=== PATIENT | female | born 1935 | race Caucasian/White ===

== ENCOUNTER 2017-01-21 08:58 | Outpatient (CLI) | payer MEDICARE ==
--- NOTE | 2017-01-21 10:49 | MMO ---
BILATERAL MAMMOGRAMS: DATE: 01/21/17 HISTORY: Screening mammography. COMPARISON: 11/16/12 and 12/09/15. FINDINGS: Scattered fibroglandular densities and benign-appearing calcifications are again demonstrated. Focal asymmetry deep within the inferior medial aspect of the right breast is stable. There is no new dom inant mass or suspicious calcifications. The study was evaluated with the assistance of computer-aided detection. IMPRESSION: BIRADS 2: Benign Finding(s) Suggest routine follow-up. POS: [facility]
== END 2017-01-21 08:59 | disposition home or self-care (01) ==
LOC: MAMMO 08:58
PROVIDERS: ATTEND Family Medicine
DX: Z12.31 Encounter for screening mammogram for malignant neoplasm of breast (principal)
CPT/HCPCS: 77067; G0202

== ENCOUNTER 2017-06-24 10:56 | Emergency (ER) | payer MEDICARE ==
[2017-06-24 11:43] LABS: #Basophils 0.1 thou/uL (0.0-0.2); #Monocytes 0.5 thou/uL (0.11-0.59); #Neutrophils 7.5 thou/uL (1.40-6.50); %Basophils 0.8 % (0.0-1.0); %Eosinophils 0.1 % (0.0-10.0); %Lymphocytes 27.1 % (21.0-51.0); %Monocytes 4.3 % (0.0-10.0); %Neutrophils 67.7 % (42.0-75.0); Hemoglobin 13.1 g/dL (12.0-16.0); Mean Corpuscular HGB CONC 32.5 g/dL (32.0-36.0); Mean Corpuscular Hemoglobin 28.6 pg (27.0-31.0); Mean Corpuscular Volume 88.2 fl (81.0-99.0); Mean Platelet Volume 8.2 fL (7.4-10.4); Platelet Count 375 thou/uL (130-400); RBC Distribution Width 13.3 % (11.5-14.5); Red Blood Cell (RBC) Count 4.59 mill/uL (4.20-5.40); White Blood Cell (WBC) Count 11.1 thou/uL (4.8-10.8)
[2017-06-24] MEDS ORDERED: hydrALAZINE 20 MG/ML VIAL ONE (11:43)
[2017-06-24 12:01] LABS: ALT (SGPT) 12 U/L (8-55); AST (SGOT) 20 U/L (5-34); Albumin 4.6 g/dL (3.4-4.8); Alkaline Phosphatase 85 U/L (40-150); Anion Gap 15 mmol/L (10-20); BUN (Urea Nitrogen) 23 mg/dL (9.8-20.1); Bilirubin, Total 0.5 mg/dL (0.2-1.2); CK (CPK) 98 U/L (29-168); Calc. Creatinine Clearance 0 mL/min (70-130); Calcium 10.2 mg/dL (7.8-10.44); Carbon Dioxide 23 mmol/L (23-31); Chloride 100 mmol/L (98-107); Estimated GFR-MDRD 66; Glucose 100 mg/dL (83-110); Protein, Total 7.6 g/dL (6.0-8.3); Sodium 134 mmol/L (136-145)
[2017-06-24 12:05] LABS: CKMB 2.9 ng/mL (0-6.6); Troponin I Less than 0.010 ng/mL (< 0.028)
--- NOTE | 2017-06-24 13:29 | RAD ---
CHEST 2 VIEWS: HISTORY: Cough. COMPARISON: 06/21/17 study. FINDINGS: Heart size is within normal limits. There are atherosclerotic changes of the aorta. The lungs are c lear of any infiltrative process. Bones appear demineralized. IMPRESSION: No active intrathoracic disease. Stable chest. POS: [facility]
== END 2017-06-24 13:20 | disposition home or self-care (01) ==
LOC: ERS 10:56
DX: J40 Bronchitis, not specified as acute or chronic (principal); Z79.899 Other long term (current) drug therapy
CPT/HCPCS: 36415; 71046; 80053; 82550; 82553; 83605; 84484; 85025; 87040; 93005; 96374; J0360

== ENCOUNTER 2018-05-03 09:30 | Emergency (ER) | payer MEDICARE ==
[2018-05-03 09:59] LABS: #Basophils 0.1 thou/uL (0.0-0.2); #Lymphocytes 1.9 thou/uL (1.20-3.40); #Monocytes 0.4 thou/uL (0.11-0.59); #Neutrophils 6.8 thou/uL (1.40-6.50); %Basophils 0.9 % (0.0-1.0); %Eosinophils 0.3 % (0.0-10.0); %Lymphocytes 20.5 % (21.0-51.0); %Monocytes 4.8 % (0.0-10.0); %Neutrophils 73.5 % (42.0-75.0); Hemoglobin 13.7 g/dL (12.0-16.0); Mean Corpuscular HGB CONC 33.7 g/dL (32.0-36.0); Mean Corpuscular Hemoglobin 29.2 pg (27.0-31.0); Mean Corpuscular Volume 86.6 fL (78.0-98.0); Platelet Count 401 thou/uL (130-400); RBC Distribution Width 13.2 % (11.5-14.5); White Blood Cell (WBC) Count 9.2 thou/uL (4.8-10.8)
[2018-05-03 10:25] LABS: ALT (SGPT) 16 U/L (8-55); AST (SGOT) 22 U/L (5-34); Albumin 4.8 g/dL (3.4-4.8); Alkaline Phosphatase 98 U/L (40-150); Anion Gap 17 mmol/L (10-20); BUN (Urea Nitrogen) 17 mg/dL (9.8-20.1); Bilirubin, Total 0.7 mg/dL (0.2-1.2); CK (CPK) 92 U/L (29-168); Calc. Creatinine Clearance 0 mL/min (70-130); Calcium 10.1 mg/dL (7.8-10.44); Carbon Dioxide 21 mmol/L (23-31); Chloride 104 mmol/L (98-107); Estimated GFR-MDRD 65; Globulin 3.4 g/dL (2.4-3.5); Glucose 101 mg/dL (83-110); Lipase 24 U/L (8-78); Potassium 4.3 mmol/L (3.5-5.1); Protein, Total 8.2 g/dL (6.0-8.3); Sodium 138 mmol/L (136-145)
--- NOTE | 2018-05-03 11:04 | RAD ---
SINGLE VIEW CHEST: HISTORY: Elevated blood pressure and mid sternal chest pain. COMPARISON: 06/24/2017 FINDINGS: Single view of the chest show normal sized cardiomediastinal silhouette. There is no evidence of cons olidation, mass, or pleural effusion. The bones are unremarkable. IMPRESSION: No evidence of acute cardiopulmonary disease. POS: [facility]
--- NOTE | 2018-05-06 10:59 | EKG ---
Test Reason : Blood Pressure : / mmHG Vent. Rate : 081 BPM Atrial Rate : 081 BPM P-R Int : 134 ms QRS Dur : 078 ms QT Int : 364 ms P-R-T Axes : 084 000 020 degrees QTc Int : 422 ms Sinus rhythm with Premature atrial complexes Otherwise normal ECG Confirmed by RYAN DOMINGO DO ([id number]), senior editor ANGIE THAPA ([id number]) on 05/06/2018 10:59:15 AM Referred By: Confirmed By:RYAN DOMINGO DO
== END 2018-05-03 11:12 | disposition home or self-care (01) ==
LOC: ERS 09:30
DX: I10 Essential (primary) hypertension (principal); R10.13 Epigastric pain; E78.5 Hyperlipidemia, unspecified; Z79.899 Other long term (current) drug therapy
CPT/HCPCS: 71045; 80053; 82550; 83690; 84484; 85025; 93005

== ENCOUNTER 2019-05-07 16:36 | Inpatient (IN) | payer MEDICARE ==
[~2019-05-07 16:36] MED LIST: ISOVUE-370 76%-LOCM 1 ML ONE
[2019-05-07 17:37] LABS: #Basophils 0.1 thou/uL (0.0-0.2); #Eosinphils 0.1 thou/uL (0.0-0.7); #Lymphocytes 2.3 thou/uL (1.20-3.40); #Monocytes 1.2 thou/uL (0.11-0.59); #Neutrophils 8.9 thou/uL (1.40-6.50); %Basophils 0.5 % (0.0-1.0); %Eosinophils 0.7 % (0.0-10.0); %Lymphocytes 18.5 % (21.0-51.0); %Monocytes 9.8 % (0.0-10.0); %Neutrophils 70.5 % (42.0-75.0); Hemoglobin 12.3 g/dL (12.0-16.0); Mean Corpuscular HGB CONC 33.2 g/dL (32.0-36.0); Mean Corpuscular Hemoglobin 28.8 pg (27.0-31.0); Mean Corpuscular Volume 86.6 fL (78.0-98.0); Mean Platelet Volume 8.9 fL (7.4-10.4); Platelet Count 356 thou/uL (130-400); RBC Distribution Width 12.5 % (11.5-14.5); Red Blood Cell (RBC) Count 4.27 mill/uL (4.20-5.40); White Blood Cell (WBC) Count 12.6 thou/uL (4.8-10.8)
[2019-05-07 17:56] LABS: ALT (SGPT) 26 U/L (8-55); AST (SGOT) 32 U/L (5-34); Albumin 4.1 g/dL (3.4-4.8); Alkaline Phosphatase 96 U/L (40-110); Anion Gap 12 mmol/L (10-20); BUN (Urea Nitrogen) 16 mg/dL (9.8-20.1); Bilirubin, Total 0.7 mg/dL (0.2-1.2); Calc. Creatinine Clearance 0 mL/min (70-130); Calcium 9.2 mg/dL (7.8-10.44); Carbon Dioxide 26 mmol/L (23-31); Chloride 102 mmol/L (98-107); Estimated GFR-MDRD 59; Globulin 3.3 g/dL (2.4-3.5); Glucose 114 mg/dL (83-110); Potassium 3.8 mmol/L (3.5-5.1); Protein, Total 7.4 g/dL (6.0-8.3); Sodium 136 mmol/L (136-145)
--- NOTE | 2019-05-07 19:40 | CT ---
CT OF THE SOFT TISSUES OF THE NECK: Indication: History of right sided abscess. Comparison: None. FINDINGS: The nome lenses have been replaced. The visualized intracranial contents are unremarkable appearing . There is a peripherally enhancing loculated fluid collection seen involving the inferior aspect of th e right engineer muscle measuring 2.6 x 1.9 x 1.8 cm, consistent with an abscess. This is causing m ass effect on the underlying right submandibular gland with thickening of the overlying right platysm a. There is some mild edema seen within the right engineer space. There is shotty appearing mildly prominent lymph nodes within the right engineer space. There is dental amalgam that limits visualization of the oral cavity. There is a posterior right rom ibular metallic post without significant surrounding periprosthetic lucency to suggest presence of in fection. No significant periodontal disease is evident. Visualized aortodigestric tract appears within normal limits. Small hypodensities involving the left thyroid gland. Left submandibular and both parotid glands are normal appearing. Lung apices are clear. No pathologically enlarged lymph nodes are evident within the upper mediastinu m. Scattered degenerative and osteoarthritic change. IMPRESSION: 1. Right engineer space abscess with surrounding inflammatory phlegmon and inflammation. The source of the infection is difficult to determine on the current exam. 2. Right facial and right neck cellulitis. 3. ENT consultation is recommended. POS: [facility]
[2019-05-07] MEDS ORDERED: Clindamycin/D5W 900 mg/50 ml Premix Bag ONE (20:31)
[2019-05-07] MEDS ORDERED: Acetaminophen 325 MG TAB PO PRN (21:21)
[2019-05-07] MEDS ORDERED: Ondansetron PF 4 MG/2 ML Vial IVP PRN (21:21)
[2019-05-07] MEDS ORDERED: Bisacodyl 5 MG TAB PO PRN (21:21)
[2019-05-07] MEDS ORDERED: Acetaminophen 650 MG Suppository PR PRN (21:21)
[2019-05-07] MEDS ORDERED: hydrALAZINE 20 MG/ML VIAL SLOW IVP PRN (21:24)
--- NOTE | 2019-05-07 21:54 | HP ---
PRIMARY CARE PROVIDER: Regis Valencia DO CHIEF COMPLAINT: Neck pain. HISTORY OF PRESENT ILLNESS: Ms. Montgomery is a pleasant 83-year-old lady, who was seen at [facility] on May 07, 2019. She reports that 5 days ago, the right side of her neck became swollen. It was also painful, sharp, on and off, lasting 2 or 3 hours at a time, worse with chewing food, improved with warm compresses, nonradiating. It was also accompanied by a temperature of 102 degrees Fahrenheit today. She also reports difficulty swallowing and sore throat. REVIEW OF SYSTEMS: All systems were reviewed and found to be negative except for the pertinent positives mentioned above. PAST MEDICAL HISTORY: Bartholin cyst I and D, plantar fasciitis, dyslipidemia, hypertension, osteopenia, and Meniere disease. PAST SURGICAL HISTORY: Bartholin cyst drainage and hysterectomy. SOCIAL HISTORY: The patient denies tobacco use, alcohol use, or recreational drug use. She ambulates independently, but uses her cane or walker if she has episodes of Meniere disease. FAMILY HISTORY: No family history of premature coronary artery disease. CODE STATUS: I discussed her code status. She is full code. ALLERGIES: CEPHALEXIN AND PENICILLIN. CURRENT MEDICATIONS: 1. Bystolic 2.5 mg daily. 2. Simethicone as needed. PHYSICAL EXAMINATION: GENERAL: On examination, Ms. Montgomery is awake and alert, not in acute distress. VITAL SIGNS: Blood pressure is 187/81, pulse 89, respiratory rate 18, and oxygen saturation 98% on room air. Earlier, she had blood pressure of 216/103. T-max in the emergency room is 100.3 degrees Fahrenheit. EYES: No scleral icterus, no conjunctival pallor. ENT: Moist mucosal membranes. NECK: She has a swelling over the right side of her neck, firm, erythematous and warm to touch and tender. RESPIRATORY: Accessory muscles of breathing are not active. Chest wall movements are symmetric bilaterally. LUNGS: Clear to auscultation without wheeze, rhonchi, or crepitations. CARDIOVASCULAR: S1 and S2 are heard, regular. Peripheral pulses palpable. ABDOMEN: Soft, nontender. Bowel sounds are heard. NEUROLOGIC: No facial droop. Deep tendon reflexes 2+. MUSCULOSKELETAL: Power is 5/5 in all 4 extremities. SKIN: Erythema over the right side of the neck, no other rashes. PSYCHIATRIC: Normal mood, normal affect. The patient is oriented to person, place, and time. LABORATORY DATA: Ms. Montgomery's labs and investigations were reviewed. She has leukocytosis with 12,600 white cells, of which 70.5% are neutrophils. Hemoglobin and platelet count are normal. Comprehensive metabolic profile is unremarkable. Lactic acid is normal. She also had soft tissue CT scan of the neck, which showed right acid treater space abscess with surrounding inflammatory phlegmon and inflammation, and right facial and right neck cellulitis. ASSESSMENT AND PLAN: Ms. Montgomery is a pleasant 83-year-old lady, who was seen at [facility] on May 07, 2019. Her problem list includes: 1. Sepsis: She had a temperature of 103 degrees Fahrenheit at home. She has leukocytosis and source of infection in the neck. She will be admitted to the hospital for further management. 2. Neck abscess: She has received intravenous clindamycin, which I will continue. ENT Service was contacted by emergency room physician and deferred to OMFS Service. The patient will be admitted under hospitalist service and [facility] Service will be consulted. 3. Hypertension: I will continue Bystolic. 4. Hypertensive urgency: The patient had markedly elevated blood pressures at the time of presentation. I will add p.r.n. hydralazine intravenously since she will be n.p.o. after midnight for a potential surgery. 5. The patient to be started on full liquid diet till midnight and then n.p.o. Many thanks for allowing me to participate in your patient's care. Please feel free to contact me with any questions or concerns. LEVEL OF RISK: Moderate. LEVEL OF COMPLEXITY: Moderate. Job ID: [id number]
[2019-05-07 23:26] VITALS: BMI 23.7
[2019-05-07] MEDS: Sodium Chloride 0.9% 1,000 ML IV SCH (23:45)
[2019-05-08 05:08] LABS: #Basophils 0.1 thou/uL (0.0-0.2); #Eosinphils 0.1 thou/uL (0.0-0.7); #Lymphocytes 2.2 thou/uL (1.20-3.40); #Monocytes 1.4 thou/uL (0.11-0.59); #Neutrophils 8.2 thou/uL (1.40-6.50); %Basophils 0.6 % (0.0-1.0); %Eosinophils 1.1 % (0.0-10.0); %Lymphocytes 18.3 % (21.0-51.0); %Monocytes 11.3 % (0.0-10.0); %Neutrophils 68.6 % (42.0-75.0); Hemoglobin 11.9 g/dL (12.0-16.0); Mean Corpuscular HGB CONC 32.5 g/dL (32.0-36.0); Mean Corpuscular Hemoglobin 28.1 pg (27.0-31.0); Mean Corpuscular Volume 86.2 fL (78.0-98.0); Mean Platelet Volume 8.9 fL (7.4-10.4); Platelet Count 329 thou/uL (130-400); RBC Distribution Width 12.4 % (11.5-14.5); Red Blood Cell (RBC) Count 4.24 mill/uL (4.20-5.40)
[2019-05-08] MEDS: Clindamycin/D5W 900 MG in Premix Bag 1 BAG IVPB SCH ×3 (05:16→22:20)
[2019-05-08 05:30] LABS: Anion Gap 12 mmol/L (10-20); BUN (Urea Nitrogen) 16 mg/dL (9.8-20.1); Calc. Creatinine Clearance 55 mL/min (70-130); Calcium 8.6 mg/dL (7.8-10.44); Carbon Dioxide 23 mmol/L (23-31); Chloride 106 mmol/L (98-107); Estimated GFR-MDRD 71; Glucose 115 mg/dL (83-110); Potassium 3.6 mmol/L (3.5-5.1); Sodium 137 mmol/L (136-145)
[2019-05-08] MEDS ORDERED: Artificial Tears 18 DROP/0.9 ML EA EYE PRN (07:13)
[2019-05-08] MEDS ORDERED: Loperamide HCl 2 MG CAP PO PRN (07:13)
[2019-05-08] MEDS ORDERED: Cepastat Lozenges 1 LOZ PO PRN (07:13)
[2019-05-08] MEDS ORDERED: Diabetic Tussin 200 MG/10 ML UDCUP PO PRN (07:13)
[2019-05-08] MEDS ORDERED: HYDROcodone/Acetaminophen 5/325 mg Tablet PO PRN (07:13)
[2019-05-08] MEDS ORDERED: Calcium Carbonate 500 MG ChewTAB PO PRN (07:13)
[2019-05-08] MEDS ORDERED: Ondansetron ODT 4 MG TAB PO PRN (07:13)
[2019-05-08] MEDS ORDERED: Senokot S 8.6-50 MG TAB PO PRN (07:13)
[2019-05-08] MEDS ORDERED: Sodium Chloride 0.65% Nasal 44 ML BOT EA NARE PRN (07:13)
[2019-05-08] MEDS ORDERED: Zolpidem Tartrate 5 MG TAB PO PRN (07:13)
[2019-05-08] MEDS ORDERED: Loratadine 10 MG TAB PO PRN (07:13)
[2019-05-08] MEDS ORDERED: Morphine 2 MG/ML SYRINGE SLOW IVP PRN (07:36)
[2019-05-08] MEDS: Nebivolol HCl 2.5 MG TAB PO SCH (08:20)
[2019-05-08] MEDS: Famotidine 20 MG TAB PO SCH ×2 (08:20→21:47)
--- NOTE | 2019-05-08 09:28 | PDOC.HOSPP ---
- Subjective Encounter Date: 05/08/19 Encounter Time: 08:45 Subjective: Patient seen and examined. No new complaints. No overnight events - Objective Vital Signs & Weight: Vital Signs (12 hours) Temp Pulse Resp BP Pulse Ox 05/08/19 08:11 98.9 F 73 18 119/67 96 05/08/19 08:00 96 05/08/19 04:51 99.6 F 84 18 147/74 H 92 L 05/07/19 22:40 97.8 F 84 18 177/99 H 96 Weight Weight 138 lb 4.8 oz I&O: 05/07/19 05/08/19 05/09/19 06:59 06:59 06:59 Intake Total 1040 Balance 1040 Result Diagrams: 05/08/19 04:48 05/08/19 04:48 Radiology Reviewed by me: Yes Hospitalist ROS - Review of Systems Constitutional: denies: fever, chills, sweats, weakness, malaise, other Eyes: denies: pain, vision change, conjunctivae inflammation, eyelid inflammation, redness, other ENT: reports: throat pain, throat swelling. denies: ear pain, ear discharge, nose pain, nose discharge, nose congestion, mouth pain, mouth swelling, other Respiratory: denies: cough, dry, shortness of breath, hemoptysis, SOB with excertion, pleuritic pain, sputum, wheezing, other Cardiovascular: denies: chest pain, palpitations, orthopnea, paroxysmal noc. dyspnea, edema, light headedness, other Gastrointestinal: denies: nausea, vomiting, abdominal pain, diarrhea, constipation, melena, hematochezia, other Genitourinary: denies: dysuria, frequency, incontinence, hematuria, retention, other Musculoskeletal: reports: neck pain Skin: denies: rash, lesions, lexi, bruising, other - Medication Medications: Active Medications Generic Name Dose Route Start Last Admin Trade Name Freq PRN Reason Stop Dose Admin Acetaminophen 650 mg 05/07/19 21:21 05/08/19 05:20 Tylenol FL 650 mg Q4H PRN Administration Headache/Fever/Mild Pain (1-3) Famotidine 20 mg 05/08/19 09:00 05/08/19 08:20 Pepcid PO Not Given BID EUGENIE Clindamycin Phosphate/Dextrose 50 mls @ 100 mls/hr 05/08/19 06:00 05/08/19 05 :16 900 mg/ Device IVPB 50 mls Q8HR EUGENIE Administration Sodium Chloride 1,000 mls @ 70 mls/hr 05/07/19 21:30 05/07/19 23:45 Normal Saline 0.9% IV 1,000 mls .[id number] EUGENIE Administration Nebivolol 2.5 mg 05/08/19 09:00 05/08/19 08:20 Bystolic PO Not Given DAILY EUGENIE Sodium Chloride 10 ml 05/08/19 09:00 05/08/19 08:22 Flush - Normal Saline IVF Not Given Q12HR EUGENIE - Exam General Appearance: NAD, awake alert Eye: PERRL, anicteric sclera ENT: normocephalic atraumatic, no oropharyngeal lesions Neck: supple, symmetric, no JVD, no thyromegaly Neck - other findings: right side of neck swelling, tender, warmth Heart: RRR, no murmur, no gallops, no rubs Respiratory: CTAB, no wheezes, no rales, no ronchi Gastrointestinal: soft, non-tender, non-distended, normal bowel sounds Extremities: no cyanosis, no clubbing, no edema Skin: normal turgor, no lesions Neurological: no focal deficits Musculoskeletal: normal tone, normal strength Psychiatric: normal affect, normal behavior Hosp A/P (1) Sepsis Code(s): A41.9 - SEPSIS, UNSPECIFIED ORGANISM Status: Acute Qualifiers: Sepsis type: sepsis due to unspecified organism Sepsis acute organ dysfunction status: without acute organ dysfunction Qualified Code(s): A41.9 - Sepsis, unspecified organism (2) Neck abscess Code(s): L02.11 - CUTANEOUS ABSCESS OF NECK Status: Acute (3) Hypertension Code(s): I10 - ESSENTIAL (PRIMARY) HYPERTENSION Status: Chronic - Plan old records reviewed/req, continue antibiotics 05/08/19 suspecting origin of abscess from tooth problem, oral surgery consulted for their opinion warm compress application over affected area continue IV antibiotics Medication reviewed and continue to provide symptomatic care and supportive care follow culture pain control with pain medication
[2019-05-08] MEDS ORDERED: Dexamethasone 20 MG/5 ML VIAL ONE (11:12)
[2019-05-08] MEDS ORDERED: Lidocaine 1% PF 5 ML VIAL ONE (11:12)
[2019-05-08] MEDS ORDERED: PROPOFOL 200 MG/20 ML VIAL ONE (11:12)
[2019-05-08] MEDS ORDERED: Rocuronium Bromide 10 MG/ML (10ML VIAL) ONE (11:12)
[2019-05-08] MEDS ORDERED: Ondansetron PF 4 MG/2 ML Vial ONE (11:12)
[2019-05-08] MEDS ORDERED: Esmolol 100 MG/10 ML VIAL ONE (11:12)
[2019-05-08] MEDS ORDERED: Ketorolac Tromethamine 30 MG/ML VIAL ONE (11:12)
[2019-05-08] MEDS: Sodium Chloride 0.9% 1,000 ML IV SCH ×2 (14:20→21:48)
[2019-05-08] MEDS ORDERED: Chlorhexidine Gluconate 15 ML UDCUP SSP ONE (18:06)
[2019-05-08] MEDS ORDERED: Bacitracin Zinc Ointment 30 gm TUBE ONE (18:06)
[2019-05-08] MEDS ORDERED: Lidocaine 1% w/Epinephrine 1:100K 20 ML VIAL ONE (18:06)
[2019-05-08] MEDS ORDERED: Fentanyl 100 MCG/2 ML VIAL ONE (18:07)
[2019-05-08] MEDS ORDERED: SUGAMMADEX SODIUM 200 MG/2 ML VIAL ONE (20:20)
[2019-05-08] MEDS ORDERED: SUGAMMADEX SODIUM 500 MG/5 ML VIAL ONE (20:20)
[2019-05-08] MEDS ORDERED: HYDROmorphone 2 MG/ML VIAL SLOW IVP PRN (20:34)
[2019-05-08] MEDS ORDERED: Ondansetron HCl/PF 4 MG/2 ML Vial IVP PRN (20:34)
[2019-05-08] MEDS ORDERED: Promethazine HCl 25 MG/ML VIAL IM PRN (20:34)
[2019-05-08] MEDS ORDERED: Morphine Sulfate 2 MG/ML SYRINGE SLOW IVP PRN (20:34)
[2019-05-08] MEDS ORDERED: Promethazine HCl 25 MG/ML VIAL SLOW IVP PRN (20:34)
[2019-05-08] MEDS ORDERED: PACU-Morphine 4MG/ML VIAL SLOW IVP PRN (20:34)
--- NOTE | 2019-05-09 01:27 | CON ---
DATE OF CONSULTATION: 05/08/2019 CONSULTING PHYSICIAN: Dr. Corona with the hospitalist. CHIEF COMPLAINT: Right-sided neck pain. HISTORY OF PRESENT ILLNESS: An 83-year-old female, who states that a couple of days prior, she noticed a lump on the right side of her neck positioned along the area of one of her superficial neck veins. She reports that also small localized lump then turned into a larger swelling and progressed to its current state. As the swelling got worse, the patient started experiencing difficulty and discomfort with opening her mouth chewing food, and she states that she noted a fever of approximately 102 degrees. She subsequently presented to the emergency room and on evaluation was found to have a right-sided deep neck space abscess. I was consulted for evaluation and management. REVIEW OF SYSTEMS: Pain and swelling of the right neck, difficulty opening her mouth, discomfort on swallowing. Otherwise, review of systems is negative. PAST MEDICAL HISTORY: Dyslipidemia, hypertension, osteopenia, Meniere disease. PAST SURGICAL HISTORY: Incision and drainage of Bartholin cyst, hysterectomy. HOME MEDICATIONS: 1. Bystolic. 2. Simethicone. ALLERGIES: PENICILLIN AND CEPHALEXIN. SOCIAL HISTORY: Denies tobacco, alcohol, or recreational drugs. PHYSICAL EXAMINATION: VITAL SIGNS: Blood pressure 137/82, pulse 72, respiratory rate is 18, 95% oxygen on room air, temperature 98.2. GENERAL: Alert and oriented x3. No apparent distress. HEAD AND NECK: The patient has significant right-sided neck swelling, which is indurated and erythematous. She is uncomfortable to palpation, but not significantly so. Due to the degree of the induration, I am unable to palpate any fluctuance. This swelling extends from the right submandibular down along the anterior lateral neck approaching the clavicular region. Maximum incisal opening is approximately 20 mm. There is no noted swelling or erythema intraorally with the buccal vestibule and the lingual vestibule appearing relatively within normal limits. The patient has an implant in the tooth #30 site, which has some exposed aspects facially; however, no signs of active acute infection in the area. None of the teeth on the right mandibular area are mobile and there are no signs of gross caries. LABORATORY STUDIES: Hematology shows a white blood cell count of 12, down from 12.6 yesterday. Platelet count 329, hemoglobin 11.9 with normal neutrophils, low lymphocytes. Chemistry studies show a glucose of 115, otherwise within normal limits. CT scan of the neck shows a large multiloculated fluid collection in the fairly inferior aspect of the right submandibular space region. There is no clear tracking or continuation of this abscess up into the area of the right mandible and dentition. The patient does have some surrounding cellulitis and potentially some phlegmon. ASSESSMENT: Right deep neck space abscess without a clear identification of source. This abscess may represent a dentoalveolar infection. However, based on the clinical and radiographic exam, it seems questionable. Additionally, based on the patient's report of development and progression of this abscess, also calls into question whether or not there is a dentoalveolar source. PLAN: 1. The patient will be kept n.p.o. and will be taken to the operating room later today for incision and drainage of the right submandibular abscess. While the patient is under general anesthetic, further exploration of the dentition of the right mandible will be entertained in any teeth or implants that show any signs of concern for potential cause of the deep neck abscess. Those potential etiologies will be removed. 2. Continue IV antibiotics and add Peridex oral rinses. The patient was consented for the above-mentioned procedure. Job ID: [id number]
--- NOTE | 2019-05-09 01:45 | OP ---
DATE OF PROCEDURE: 05/08/2019 PREOPERATIVE DIAGNOSIS: Right submandibular space abscess. POSTOPERATIVE DIAGNOSIS: Right submandibular space abscess. PROCEDURE PERFORMED: Transcervical incision and drainage of right submandibular abscess. INDICATIONS FOR PROCEDURE: This 83-year-old female with recent acute onset of right neck swelling, induration and pain. On presentation to the emergency room, the patient was found to have a large multiloculated abscess of the right neck and was admitted for initiation of IV antibiotics. I was consulted for surgical management of the abscess and the patient was brought to the operating room at this time for incision and drainage of the neck abscess. DESCRIPTION OF PROCEDURE: The patient was identified in the preoperative holding and all questions were answered. She was subsequently transferred to the operating room and transferred to the operating room table in a supine position. She was subsequently intubated via the oral route by the anesthesia service without complication. A surgical time-out was performed. The face and neck were prepped and draped in a sterile manner and a skin marker was used to nevaeh the level of the planned incision in the right neck. This incision was approximately 3-4 cm inferior to the inferior border of the mandible. After marking the incision, lidocaine with epinephrine was infiltrated throughout the area of the planned approach. Subsequently, a 15 blade was used to make a skin incision. Hemostats were then used to bluntly dissect through the subcutaneous tissue through the platysma and up toward the area of the abscess. Very soon after a blunt dissection began, the abscess was entered bluntly using the hemostats and the hemostats were spread to decompress the abscess. Significant amounts of ruben purulence were obtained and a culture swab was taken and sent for cultures. After this, finger dissection then ensued to break up all loculations and further completely decompressed the abscess. This was done without problem and it was noted on finger dissection that the abscess did not proceed fully up into the area of the perimandibular region, although it did continue just to the inferior border region. After complete decompression of the abscess, the wound was copiously irrigated with bacitracin infused normal saline. During the finger dissection and irrigation, multiple pieces of possibly necrotic tissue were retrieved from the cavity, and 2 of these pieces were sent for pathology. After decompression and irrigation, attention was turned intraorally and the dentition of the right mandible was evaluated. As was felt on the preoperative exam, there was no signs of inflammation, swelling, or infection intraorally with the tissues of the buccal vestibule and lingual vestibule completely normal and unaffected relative to the tissues of the right neck. Additionally, the implant in the tooth #30 site was noted to have some exposed aspects facially, but there are no signs of acute infection in the area. All teeth in the right mandible were nonmobile and without significant probing depths or obvious signs of pathology. It was decided at this time that no teeth or implants will be removed at this point. The oral cavity was suctioned free of secretions. Attention was turned back to the neck. The neck wound was irrigated once more with a bacitracin infused saline and then a quarter-inch Jose De Jesus drain was doubled over on itself and introduced into the abscess cavity. This drain was tacked to the skin using a 2-0 nylon drain stitch and it was cut to length. The face and neck were cleaned of the prep solution and ABD pad as well as a Kerlix fluffs were placed over the neck wound and taped securely. The patient was turned over to Anesthesia for emergence and extubation, which ensued without complication. INTRAVENOUS FLUIDS: Please see anesthetic record. ESTIMATED BLOOD LOSS: 15 mL. SPECIMENS: Purulence and tissue from the right neck abscess region. DRAINS: Quarter-inch [place] to the right submandibular space. IMPLANTS: None. COMPLICATIONS: None. FINDINGS: Significant thick purulence from the right deep neck and submandibular regions. Multiple pieces of what appeared to be possible necrotic soft tissue retrieved from the area of the right neck abscess. No obvious signs of dental pathology or infection. DISPOSITION: The patient tolerated the procedure well and she was transferred to the recovery room in good condition. Job ID: [id number]
[2019-05-09] MEDS: Sodium Chloride 0.9% 1,000 ML IV SCH (02:30)
[2019-05-09] MEDS: Clindamycin/D5W 900 MG in Premix Bag 1 BAG IVPB SCH ×3 (05:42→21:26)
[2019-05-09 06:12] LABS: #Monocytes 0.2 thou/uL (0.11-0.59); #Neutrophils 7.3 thou/uL (1.40-6.50); %Basophils 0.4 % (0.0-1.0); %Lymphocytes 12.2 % (21.0-51.0); %Monocytes 1.9 % (0.0-10.0); %Neutrophils 85.5 % (42.0-75.0); Hemoglobin 12.8 g/dL (12.0-16.0); Mean Corpuscular HGB CONC 32.9 g/dL (32.0-36.0); Mean Corpuscular Hemoglobin 28.8 pg (27.0-31.0); Mean Corpuscular Volume 87.4 fL (78.0-98.0); Mean Platelet Volume 9.3 fL (7.4-10.4); Platelet Count 373 thou/uL (130-400); RBC Distribution Width 12.3 % (11.5-14.5); Red Blood Cell (RBC) Count 4.44 mill/uL (4.20-5.40); White Blood Cell (WBC) Count 8.5 thou/uL (4.8-10.8)
[2019-05-09] MEDS: Nebivolol HCl 2.5 MG TAB PO SCH (08:05)
[2019-05-09] MEDS: Famotidine 20 MG TAB PO SCH ×2 (08:06→21:25)
--- NOTE | 2019-05-09 17:50 | PDOC.HOSPP ---
- Subjective Subjective: Seen and examined. Dressing of the neck is clean, dry, and intact. Preliminary cultures was Staphylococcus, sensitivity pending. Patient states that pain and swelling has significantly improved and she is able the chew and swallow now without pain. Time was given for questions, all answered in detail. - Objective Vital Signs & Weight: Vital Signs (12 hours) Temp Pulse Resp BP Pulse Ox 05/09/19 15:22 97.6 F 64 16 133/70 96 05/09/19 11:17 97.6 F 64 16 128/67 94 L 05/09/19 07:23 97.8 F 74 17 137/80 98 Weight Weight 138 lb 4.8 oz I&O: 05/08/19 05/09/19 05/10/19 06:59 06:59 06:59 Intake Total 1040 900 880 Balance 1040 900 880 Result Diagrams: 05/09/19 05:47 05/08/19 04:48 Radiology Reviewed by me: Yes Hospitalist ROS - Review of Systems All other systems reviewed; all pertinent +/- noted in HPI/Subj - Medication Medications: Active Medications Generic Name Dose Route Start Last Admin Trade Name Freq PRN Reason Stop Dose Admin Acetaminophen 650 mg 05/07/19 21:21 05/08/19 05:20 Tylenol [place] 650 mg Q4H PRN Administration Headache/Fever/Mild Pain (1-3) Famotidine 20 mg 05/08/19 09:00 05/09/19 08:06 Pepcid PO 20 mg BID EUGENIE Administration Clindamycin Phosphate/Dextrose 50 mls @ 100 mls/hr 05/08/19 06:00 05/09/19 13 :23 900 mg/ Device IVPB 50 mls Q8HR EUGENIE Administration Sodium Chloride 10 ml 05/08/19 09:00 05/09/19 08:07 Flush - Normal Saline IVF 10 ml Q12HR EUGENIE Administration - Exam General Appearance: NAD, awake alert Eye: anicteric sclera ENT: normocephalic atraumatic, moist mucosa Neck: supple, symmetric, no lymphadenopathy Neck - other findings: Dressing clean, dry, and intact Heart: diminshed peripheral pulses Respiratory: CTAB, no wheezes, no rales, no ronchi, no tachypnea Gastrointestinal: soft, non-tender, non-distended, no guarding, no rigidity Extremities: no edema Skin: no lesions, no rashes Neurological: cranial nerve grossly intact, no focal deficits Musculoskeletal: generalized weakness Psychiatric: normal affect, normal behavior, A&O x 3 Hosp A/P (1) Neck abscess Code(s): L02.11 - CUTANEOUS ABSCESS OF NECK Status: Acute (2) Sepsis Code(s): A41.9 - SEPSIS, UNSPECIFIED ORGANISM Status: Acute Qualifiers: Sepsis type: sepsis due to unspecified organism Sepsis acute organ dysfunction status: without acute organ dysfunction Qualified Code(s): A41.9 - Sepsis, unspecified organism (3) Physical deconditioning Code(s): R53.81 - OTHER MALAISE Status: Acute (4) Hypertension Code(s): I10 - ESSENTIAL (PRIMARY) HYPERTENSION Status: Chronic (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 Carrera on 05/08/2019 postoperative care IV antibiotics intraoperative cultures preliminary for Staphylococcus, de-escalate to culture and sensitivity as able blood pressure control blood sugar control continual home medications as able G.I. prophylaxis DVT prophylaxis
[2019-05-10] MEDS: Clindamycin/D5W 900 MG in Premix Bag 1 BAG IVPB SCH ×3 (05:31→21:14)
[2019-05-10] MEDS ORDERED: Nebivolol HCl 2.5 MG TAB PO SCH (09:00)
[2019-05-10] MEDS: Famotidine 20 MG TAB PO SCH ×2 (09:37→21:13)
--- NOTE | 2019-05-10 12:11 | PDOC.HOSPP ---
- Subjective Subjective: Seen and examined. Doing well this AM. Bandage clean and dry, was replaced this AM. Breathing well on room air. Microbiology reviewed - callejas sensitive s. aureus , will transition to orals on D/c. - Objective Vital Signs & Weight: Vital Signs (12 hours) Temp Pulse Resp BP Pulse Ox 05/10/19 08:00 97.8 F 98 16 150/80 H 96 05/10/19 02:56 98.2 F 79 16 151/78 H 97 Weight Weight 138 lb 4.8 oz I&O: 05/09/19 05/10/19 05/11/19 06:59 06:59 06:59 Intake Total 900 1970 Balance 900 1969 Result Diagrams: 05/09/19 05:47 05/08/19 04:48 Radiology Reviewed by me: Yes Hospitalist ROS - Review of Systems All other systems reviewed; all pertinent +/- noted in HPI/Subj - Medication Medications: Active Medications Generic Name Dose Route Start Last Admin Trade Name Freq PRN Reason Stop Dose Admin Acetaminophen 650 mg 05/07/19 21:21 05/08/19 05:20 Tylenol NM 650 mg Q4H PRN Administration Headache/Fever/Mild Pain (1-3) Famotidine 20 mg 05/08/19 09:00 05/10/19 09:37 Pepcid PO 20 mg BID EUGENIE Administration Clindamycin Phosphate/Dextrose 50 mls @ 100 mls/hr 05/08/19 06:00 05/10/19 05 :31 900 mg/ Device IVPB 50 mls Q8HR EUGENIE Administration Nebivolol 5 mg 05/10/19 09:00 05/10/19 09:37 Bystolic PO 5 mg DAILY EUGENIE Administration Sodium Chloride 10 ml 05/08/19 09:00 05/09/19 21:26 Flush - Normal Saline IVF 10 ml Q12HR EUGENIE Administration - Exam General Appearance: NAD, awake alert Eye: PERRL, anicteric sclera ENT: normocephalic atraumatic, moist mucosa Neck: supple, symmetric, no lymphadenopathy Neck - other findings: Right neck dressing clean and dry. Heart: no murmur, no gallops, no rubs Respiratory: CTAB, no wheezes, no rales, no ronchi Gastrointestinal: soft, non-tender, no guarding, no rigidity Extremities: no edema Skin: no rashes Neurological: cranial nerve grossly intact, no focal deficits Musculoskeletal: generalized weakness Psychiatric: normal affect, normal behavior, A&O x 3 Hosp A/P (1) Neck abscess Code(s): L02.11 - CUTANEOUS ABSCESS OF NECK Status: Acute (2) Sepsis Code(s): A41.9 - SEPSIS, UNSPECIFIED ORGANISM Status: Acute Qualifiers: Sepsis type: sepsis due to unspecified organism Sepsis acute organ dysfunction status: without acute organ dysfunction Qualified Code(s): A41.9 - Sepsis, unspecified organism (3) Physical deconditioning Code(s): R53.81 - OTHER MALAISE Status: Acute (4) Hypertension Code(s): I10 - ESSENTIAL (PRIMARY) HYPERTENSION Status: Chronic (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 Carrera on 05/08/2019 postoperative care IV antibiotics intraoperative cultures with Staphylococcus, callejas sensitivity - Will transition or oral meds on D/c PT/OT eval and treat blood pressure control blood sugar control continual home medications as able G.I. prophylaxis DVT prophylaxis
[2019-05-10] MEDS: Floranex Packet PO SCH (16:51)
[2019-05-11] MEDS: Clindamycin/D5W 900 MG in Premix Bag 1 BAG IVPB SCH ×3 (06:08→21:01)
[2019-05-11] MEDS: Floranex Packet PO SCH (09:04)
[2019-05-11] MEDS: Nebivolol HCl 5 MG TAB PO SCH (09:04)
[2019-05-11] MEDS: Famotidine 20 MG TAB PO SCH ×2 (09:05→20:59)
--- NOTE | 2019-05-11 14:39 | PDOC.HOSPP ---
- Subjective Subjective: Patient continues to improve. Dressing intact and there is some per went drainage. Patient will benefit from home with home healthcare with RN for wound care. Breathing well. Afebrile. Cultures with callejas sensitive Staphylococcus, will de-escalate to oral antibiotics on discharge. - Objective Vital Signs & Weight: Vital Signs (12 hours) Temp Pulse Resp BP Pulse Ox 05/11/19 07:10 98.0 F 61 18 154/85 H 94 L Weight Weight 138 lb 4.8 oz I&O: 05/10/19 05/11/19 05/12/19 06:59 06:59 06:59 Intake Total 1970 Balance 1970 Result Diagrams: 05/09/19 05:47 05/08/19 04:48 Hospitalist ROS - Review of Systems All other systems reviewed; all pertinent +/- noted in HPI/Subj - Medication Medications: Active Medications Generic Name Dose Route Start Last Admin Trade Name Freq PRN Reason Stop Dose Admin Acetaminophen 650 mg 05/07/19 21:21 05/08/19 05:20 Tylenol SC 650 mg Q4H PRN Administration Headache/Fever/Mild Pain (1-3) Acidophilus 1 gm 05/10/19 09:00 05/11/19 09:04 Floranex PO 1 gm DAILY EUGENIE Administration Famotidine 20 mg 05/08/19 09:00 05/11/19 09:05 Pepcid PO 20 mg BID EUGENIE Administration Clindamycin Phosphate/Dextrose 50 mls @ 100 mls/hr 05/08/19 06:00 05/11/19 12 :52 900 mg/ Device IVPB 50 mls Q8HR EUGENIE Administration Nebivolol 5 mg 05/11/19 09:00 05/11/19 09:04 Bystolic PO 5 mg DAILY EUGENIE Administration Sodium Chloride 10 ml 05/08/19 09:00 05/11/19 10:43 Flush - Normal Saline IVF Not Given Q12HR EUGENIE - Exam General Appearance: NAD, awake alert Eye: PERRL, anicteric sclera ENT: normocephalic atraumatic, moist mucosa Neck: supple, symmetric, no lymphadenopathy Heart: no murmur, no gallops, no rubs Respiratory: CTAB, no wheezes, no rales, no ronchi, normal chest expansion Gastrointestinal: soft, non-tender, no guarding, no rigidity Extremities: no edema Skin: no rashes Skin - other findings: Right neck wound with scant blood and purulent discharge Neurological: cranial nerve grossly intact, no focal deficits Musculoskeletal: normal tone, normal strength Psychiatric: normal affect, normal behavior, A&O x 3 Hosp A/P (1) Neck abscess Code(s): L02.11 - CUTANEOUS ABSCESS OF NECK Status: Acute (2) Sepsis Code(s): A41.9 - SEPSIS, UNSPECIFIED ORGANISM Status: Acute Qualifiers: Sepsis type: sepsis due to unspecified organism Sepsis acute organ dysfunction status: without acute organ dysfunction Qualified Code(s): A41.9 - Sepsis, unspecified organism (3) Physical deconditioning Code(s): R53.81 - OTHER MALAISE Status: Acute (4) Hypertension Code(s): I10 - ESSENTIAL (PRIMARY) HYPERTENSION Status: Chronic (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 Carrera on 05/08/2019 postoperative care IV antibiotics intraoperative cultures with Staphylococcus, callejas sensitivity - Will transition or oral meds on D/c PT/OT eval and treat blood pressure control blood sugar control continual home medications as able G.I. prophylaxis DVT prophylaxis
[2019-05-12] MEDS: Clindamycin/D5W 900 MG in Premix Bag 1 BAG IVPB SCH (06:06)
[2019-05-12] MEDS: Floranex Packet PO SCH (08:32)
[2019-05-12] MEDS: Famotidine 20 MG TAB PO SCH (08:32)
[2019-05-12] MEDS: Nebivolol HCl 5 MG TAB PO SCH (08:32)
[2019-05-12 11:10] VITALS: BP 159/83; TEMP 97.4
--- NOTE | 2019-05-12 23:07 | DIS ---
DATE OF ADMISSION: 05/07/2019 DATE OF DISCHARGE: 05/12/2019 REASON FOR HOSPITALIZATION: Neck swelling and pain. SIGNIFICANT FINDINGS: The patient was found to have abscess on the right side of her neck growing Staphylococcus aureus. PROCEDURES PERFORMED AND TREATMENTS RENDERED: The patient was admitted to medical unit on 05/07/2019, for close management after she was identified to have right neck abscess. The patient was seen and evaluated by oral maxillofacial surgeon, Dr. Carrera-please see full consultation notes and progress notes in addition to operative reports for full details. The patient was taken to the operating room on 05/08/2019, by Dr. Carrera-please see full operative report for details. The patient tolerated the procedure well without intraoperative complications. Intraoperative cultures were obtained from the right submandibular abscess and these cultures were identified to be growing Staphylococcus aureus. The patient was empirically placed on IV antibiotics on admission with clindamycin, which was found to be sensitive to. The patient continued IV clindamycin while she was hospitalized. The patient recommended safe for discharge by surgery on 05/12/2019. I helped set up the patient with home health care with the assistance of Case Management, so that she can have RN to assist with wound dressing changes and physical therapy to be continued. The patient remaining afebrile since admission. WBC count normalized. The patient is recommended safe for discharge on oral antibiotics with close followup with surgery in the outpatient setting. CONDITION ON DISCHARGE: Stable. SPECIFIC INSTRUCTIONS FOR THE PATIENT/FAMILY: 1. The patient is recommended to follow up with oral maxillofacial surgeon, Dr. Carrera in the outpatient setting in the next 2 to 3 days. 2. The patient is recommended to follow up with primary care physician in the next 5 to 7 days. 3. The patient is recommended to complete a full course of oral antibiotics. 4. The patient is recommended to call to take all other home medications as directed. 5. The patient is recommended to return to acute care hospital immediately if signs or symptoms return, worsen, or any other new symptoms occur. DISCHARGE MEDICATIONS: 1. Clindamycin 300 mg p.o. q.6 hours for 7 days, 28 tablets. 2. Acidophilus bulgaricus 1 g p.o. daily. 3. Famotidine 20 mg p.o. b.i.d. 4. Simethicone 125 mg four times per day p.r.n. gas pain. 5. Bystolic 5 mg p.o. at bedtime. TIME SPENT: greater than 36 minutes spent coordinating care and discharge process for this patient. Job ID: [id number]
--- NOTE | 2019-05-14 20:16 | PQF ---
[employer] Win[employer] Viewer JOE AMATO ERIK [id number] [id number] CLINICAL DOCUMENTATION CLARIFICATION FORM: POST DISCHARGE Addendum to original discharge summary date: ____ Late entry note date: __ DATE: 05/14/19 ATTN:Vin Johnson Please exercise your independent, professional judgment in responding to the clarification form. Clinical indicators are provided on the bottom of this form for your review Can you please further clarify if Sepsis is ruled in or ruled out? Sepsis [ XX ] Ruled in diagnosis [ ] Continue to treat [ ] Resolved [ ] Ruled out diagnosis [ ] Cannot rule out diagnosis [ ] Other diagnosis [ ] Unable to determine In addition, please specify: Present on Admission (POA): [ XX ] Yes [ ] No [ ] Unable to determine For continuity of documentation, please document condition throughout progress notes and discharge summary. Thank You. CLINICAL INDICATORS - SIGNS / SYMPTOMS / LABS Consult pg.1- found to have a right sided deep neck space abscess H and P pg.2- Sepsis He had temperature of 103 degrees Fahrenheit H and P pg.2- she has leukocytosis and source of infection in the neck Hospitalist PM pg.4- suspecting origin of abscess from tooth problem Hospitalist PN pg.1- Preliminary cultures was staphylococcus Hospitalist PN 05/11 pg.4- Sepsis due to unspecified organism DS pg.1- Significant findings: abscess on the right side of neck growing staphylococcus aureus RISK FACTORS Neck abscess- H and P pg.2 Hypertensive urgency- H and P pg.2 Submandibular space abscess TREATMENTS I and D of right submandibular abscess- OP report pg.1 IV antibiotics- MAR IV fluids- MAR Dental Consult- Dr. Crespo 05/[address] 05/07 (This form is maintained as a part of the permanent medical record) 2014 [email or web address]. All Rights Reserved [email or web address]
== END 2019-05-12 12:09 | disposition home health service (06) | DRG 854 ==
LOC: ERS 16:36 → T4-B 21:15
PROVIDERS: ADMIT Internal Medicine; ATTEND Internal Medicine
PROC: 0J940ZZ Drainage of Right Neck Subcutaneous Tissue and Fascia, Open Approach (ICD-10-PCS; principal; 2019-05-08)
DX: A41.9 Sepsis, unspecified organism (principal); L02.11 Cutaneous abscess of neck; I16.0 Hypertensive urgency; E78.5 Hyperlipidemia, unspecified; E78.00 Pure hypercholesterolemia, unspecified; I10 Essential (primary) hypertension; M85.80 Other specified disorders of bone density and structure, unspecified site; H81.09 Meniere's disease, unspecified ear; B95.61 Methicillin susceptible Staphylococcus aureus infection as the cause of diseases classified elsewhere; Z90.710 Acquired absence of both cervix and uterus; Z88.0 Allergy status to penicillin; Z79.899 Other long term (current) drug therapy
CPT/HCPCS: 36415; 70491; 80048; 80053; 83605; 85025; 86140; 87070; 87077; 87186; 87205; 88305; 88312; 96365; 99213; G0463; J1100; J1885; J2001; J2405; J2704; J3010; J3490; Q9966

== ENCOUNTER 2023-02-07 11:13 | Emergency (ER) | payer MEDICARE ==
[2023-02-07 11:53] LABS: #Basophils 0.1 thou/uL (0.0-0.2); #Eosinphils 0.1 thou/uL (0.0-0.7); #Monocytes 0.4 thou/uL (0.11-0.59); #Neutrophils 4.2 thou/uL (1.40-6.50); %Basophils 0.8 % (0.0-1.0); %Eosinophils 1.7 % (0.0-10.0); %Lymphocytes 32.2 % (21.0-51.0); %Monocytes 6.1 % (0.0-10.0); %Neutrophils 59.1 % (42.0-75.0); Hematocrit 39.3 % (36.0-47.0); Hemoglobin 12.9 g/dL (12.0-16.0); Mean Corpuscular HGB CONC 32.8 g/dL (32.0-36.0); Mean Corpuscular Hemoglobin 28.4 pg (27.0-31.0); Mean Corpuscular Volume 86.4 fl (78.0-98.0); Platelet Count 379 10x3/uL (130-400); RBC Distribution Width 14.8 % (11.5-14.5); Red Blood Cell (RBC) Count 4.55 mill/uL (4.20-5.40); White Blood Cell (WBC) Count 7.1 10x3/uL (4.8-10.8)
[2023-02-07 12:19] LABS: ALT (SGPT) 16 U/L (8-55); AST (SGOT) 26 U/L (5-34); Albumin 4.9 g/dL (3.4-4.8); Alkaline Phosphatase 93 U/L (40-110); Anion Gap 16 mmol/L (10-20); BUN (Urea Nitrogen) 27 mg/dL (9.8-20.1); Bilirubin, Total 0.7 mg/dL (0.2-1.2); Calc. Creatinine Clearance 0 mL/min (70-130); Calcium 9.6 mg/dL (7.8-10.44); Carbon Dioxide 20 mmol/L (23-31); Chloride 106 mmol/L (98-107); Estimated GFR 60; Glucose 96 mg/dL (83-110); Potassium 4.7 mmol/L (3.5-5.1); Protein, Total 7.9 g/dL (5.8-8.1); Sodium 137 mmol/L (136-145)
[2023-02-07 12:21] LABS: Troponin I 0.011 ng/mL (< 0.028)
[2023-02-07] MEDS ORDERED: dilTIAZem 25 MG/5 ML VIAL ONE (13:07)
== END 2023-02-07 14:58 | disposition home or self-care (01) ==
LOC: ERS 11:13
DX: I48.91 Unspecified atrial fibrillation (principal); E78.00 Pure hypercholesterolemia, unspecified; I10 Essential (primary) hypertension
CPT/HCPCS: 71045; 80053; 84484; 85025; 93005; 96361; 96372; 96374; J1650

== ENCOUNTER 2024-01-21 22:24 | Emergency (ER) | payer MEDICARE ==
[2024-01-21 23:04] LABS: #Basophils 0.05 10x3/uL (0.0-0.2); %Basophils 0.6 % (0.0-1.0); %Eosinophils 0.3 % (0.0-10.0); %Lymphocytes 12.1 % (21.0-51.0); %Monocytes 4.1 % (0.0-10.0); %Neutrophils 82.6 % (42.0-75.0); Hematocrit 27.1 % (36.0-47.0); Hemoglobin 8.6 g/dL (12.0-16.0); Mean Corpuscular HGB CONC 31.7 g/dL (32.0-36.0); Mean Corpuscular Hemoglobin 27.2 pg (27.0-31.0); Mean Corpuscular Volume 85.8 fL (78.0-98.0); Mean Platelet Volume 10.9 fL (7.4-10.4); Platelet Count 284 10x3/uL (130-400); Red Blood Cell (RBC) Count 3.16 mill/uL (4.20-5.40)
== END 2024-01-21 23:53 | disposition home or self-care (01) ==
LOC: ERS 22:24
DX: I83.92 Asymptomatic varicose veins of left lower extremity (principal); I10 Essential (primary) hypertension; E78.00 Pure hypercholesterolemia, unspecified; I48.91 Unspecified atrial fibrillation; H81.09 Meniere's disease, unspecified ear; Z79.01 Long term (current) use of anticoagulants; Z79.899 Other long term (current) drug therapy
CPT/HCPCS: 36415; 85025; 86850; 86900; 86901; 99284

== ENCOUNTER 2024-01-25 11:01 | Inpatient (IN) | payer MEDICARE ==
[~2024-01-25 11:01] MED LIST changes: -ISOVUE-370 76%-LOCM 1 ML ONE; +Iopamidol-370 76% 500 ML MDV (1 ML CHARGE) ONE
[2024-01-25 11:37] LABS: #Basophils 0.11 10x3/uL (0.0-0.2); %Basophils 1.2 % (0.0-1.0); %Eosinophils 1.6 % (0.0-10.0); %Lymphocytes 31.4 % (21.0-51.0); %Monocytes 7.9 % (0.0-10.0); %Neutrophils 57.6 % (42.0-75.0); Hematocrit 24.7 % (36.0-47.0); Hemoglobin 7.7 g/dL (12.0-16.0); Mean Corpuscular HGB CONC 31.2 g/dL (32.0-36.0); Mean Corpuscular Hemoglobin 26.8 pg (27.0-31.0); Mean Corpuscular Volume 86.1 fL (78.0-98.0); Mean Platelet Volume 10.7 fL (7.4-10.4); Platelet Count 343 10x3/uL (130-400); RBC Distribution Width 16.4 % (11.5-14.5); Red Blood Cell (RBC) Count 2.87 mill/uL (4.20-5.40)
[2024-01-25 11:54] LABS: ALT (SGPT) 22 U/L (8-55); AST (SGOT) 34 U/L (5-34); Albumin 3.9 g/dL (3.4-4.8); Alkaline Phosphatase 80 U/L (40-110); Anion Gap 12 mmol/L (10-20); BUN (Urea Nitrogen) 24 mg/dL (9.8-20.1); Bilirubin, Total 0.7 mg/dL (0.2-1.2); Calc. Creatinine Clearance 0 mL/min (70-130); Calcium 9.1 mg/dL (7.8-10.44); Carbon Dioxide 23 mmol/L (23-31); Chloride 109 mmol/L (98-107); Estimated GFR 46; Globulin 2.9 g/dL (2.4-3.5); Glucose 107 mg/dL (83-110); Lipase 61 U/L (8-78); Potassium 4.5 mmol/L (3.5-5.1); Protein, Total 6.8 g/dL (5.8-8.1); Sodium 139 mmol/L (136-145)
[2024-01-25 11:57] LABS: Troponin I 0.026 ng/mL (< 0.028)
[2024-01-25 13:47] LABS: Bilirubin Negative (Negative); Blood, Urine Negative (Negative); CAUTI Indications for Culture Pelvic or flank pain; Clarity Clear (Clear); Glucose, Urine (Dipstick) Normal (Negative); Ketone, Urine Negative (Negative); Leukocyte Negative Leu/uL (Negative); Nitrite Negative (Negative); Protein, Urine (Dipstick) Negative (Neg-Trace); RBC/HPF 0-3 HPF (0-3); Squamous Epithelial 0-3 HPF (0-3); Urobilinogen Normal mg/dL (Less than 2); WBC/HPF 0-3 HPF (0-3); pH, Urine 5.5 (5.0-9.0)
[2024-01-25 13:53] LABS: Bacteria/HPF 1+ HPF (None Seen)
[2024-01-25 13:55] LABS: Specific Gravity, Urine 1.004 (1.002-1.036)
[2024-01-25 13:56] LABS: Urine Culture Reflex No No
[2024-01-25] MEDS ORDERED: Ondansetron ODT 4 MG TAB PO PRN (14:25)
[2024-01-25] MEDS ORDERED: Acetaminophen 325 MG TAB PO PRN (14:25)
[2024-01-25] MEDS ORDERED: Pantoprazole 40 MG VIAL ONE (15:08)
[2024-01-25] MEDS: Pantoprazole 40 MG VIAL IVP SCH (15:12)
[2024-01-25] MEDS: Nebivolol HCl 2.5 MG TAB PO SCH (15:13)
[2024-01-25] MEDS: hydrALAZINE 20 MG/ML VIAL SLOW IVP PRN (18:02)
[2024-01-25 18:46] VITALS: BMI 24.0
[2024-01-25] MEDS: GoLYTELY 4,000 ml Bottle PO SCH (19:49)
[2024-01-26 07:20] LABS: #Basophils 0.09 10x3/uL (0.0-0.2); %Eosinophils 2.8 % (0.0-10.0); %Lymphocytes 32.9 % (21.0-51.0); %Monocytes 10.1 % (0.0-10.0); Hematocrit 25.5 % (36.0-47.0); Hemoglobin 8.3 g/dL (12.0-16.0); Mean Corpuscular HGB CONC 32.5 g/dL (32.0-36.0); Mean Corpuscular Hemoglobin 26.8 pg (27.0-31.0); Mean Corpuscular Volume 82.3 fL (78.0-98.0); Mean Platelet Volume 11.3 fL (7.4-10.4); Platelet Count 412 10x3/uL (130-400); RBC Distribution Width 16.4 % (11.5-14.5)
[2024-01-26 08:00] LABS: Anion Gap 14 mmol/L (10-20); BUN (Urea Nitrogen) 19 mg/dL (9.8-20.1); Calc. Creatinine Clearance 35 mL/min (70-130); Calcium 9.2 mg/dL (7.8-10.44); Carbon Dioxide 23 mmol/L (23-31); Chloride 108 mmol/L (98-107); Estimated GFR 48; Glucose 114 mg/dL (83-110); Potassium 4.1 mmol/L (3.5-5.1); Sodium 141 mmol/L (136-145)
[2024-01-26] MEDS ORDERED: PROPOFOL 0 ML ONE (08:20)
[2024-01-26] MEDS ORDERED: Lidocaine 1% PF 5 ML VIAL ONE (08:34)
[2024-01-26] MEDS ORDERED: PROPOFOL 20 ML ONE ×2 (08:45→08:56)
[2024-01-26] MEDS ORDERED: PHENYLEPHRINE-NS 100 MCG/ML 10 ML SYRINGE ONE (08:46)
[2024-01-26] MEDS: Pantoprazole 40 MG VIAL IVP SCH (10:39)
[2024-01-26] MEDS ORDERED: Nebivolol HCl 5 MG TAB PO SCH (13:30)
[2024-01-26] MEDS: Nebivolol HCl 2.5 MG TAB PO SCH (20:27)
[2024-01-27 05:27] LABS: #Basophils 0.07 10x3/uL (0.0-0.2); %Basophils 0.8 % (0.0-1.0); %Eosinophils 3.9 % (0.0-10.0); %Lymphocytes 42.2 % (21.0-51.0); %Monocytes 10.4 % (0.0-10.0); %Neutrophils 42.5 % (42.0-75.0); Hematocrit 23.9 % (36.0-47.0); Hemoglobin 7.7 g/dL (12.0-16.0); Mean Corpuscular HGB CONC 32.2 g/dL (32.0-36.0); Mean Corpuscular Hemoglobin 26.9 pg (27.0-31.0); Mean Corpuscular Volume 83.6 fL (78.0-98.0); Mean Platelet Volume 10.8 fL (7.4-10.4); Platelet Count 366 10x3/uL (130-400); RBC Distribution Width 16.2 % (11.5-14.5); Red Blood Cell (RBC) Count 2.86 mill/uL (4.20-5.40)
[2024-01-27 05:39] LABS: ALT (SGPT) 24 U/L (8-55); AST (SGOT) 32 U/L (5-34); Albumin 3.2 g/dL (3.4-4.8); Alkaline Phosphatase 73 U/L (40-110); Anion Gap 11 mmol/L (10-20); BUN (Urea Nitrogen) 20 mg/dL (9.8-20.1); Bilirubin, Total 0.8 mg/dL (0.2-1.2); Calc. Creatinine Clearance 37 mL/min (70-130); Calcium 8.5 mg/dL (7.8-10.44); Carbon Dioxide 23 mmol/L (23-31); Chloride 109 mmol/L (98-107); Estimated GFR 50; Globulin 2.5 g/dL (2.4-3.5); Glucose 97 mg/dL (83-110); Protein, Total 5.7 g/dL (5.8-8.1); Sodium 139 mmol/L (136-145)
[2024-01-27] MEDS: Rivaroxaban 10 MG TAB PO SCH (08:59)
[2024-01-27] MEDS ORDERED: Nebivolol HCl 5 MG TAB PO SCH (09:00)
[2024-01-27 16:17] VITALS: BP 150/83; TEMP 97.7
== END 2024-01-27 18:50 | disposition home or self-care (01) | DRG 378 ==
LOC: SUATTDRO 11:01 → ERS 11:01 → ERHOLD 13:18 → T4-A 17:38
PROVIDERS: ADMIT Internal Medicine; ATTEND Internal Medicine
PROC: 30233N1 Transfusion of Nonautologous Red Blood Cells into Peripheral Vein, Percutaneous Approach (ICD-10-PCS; 2024-01-25)
PROC: 0DJ08ZZ Inspection of Upper Intestinal Tract, Via Natural or Artificial Opening Endoscopic (ICD-10-PCS; principal; 2024-01-26)
PROC: 0DJD8ZZ Inspection of Lower Intestinal Tract, Via Natural or Artificial Opening Endoscopic (ICD-10-PCS; 2024-01-26)
DX: K92.1 Melena (principal); D62 Acute posthemorrhagic anemia; I48.19 Other persistent atrial fibrillation; I10 Essential (primary) hypertension; H81.09 Meniere's disease, unspecified ear; E78.00 Pure hypercholesterolemia, unspecified; Z88.0 Allergy status to penicillin; Z79.01 Long term (current) use of anticoagulants; Z90.710 Acquired absence of both cervix and uterus; Z79.899 Other long term (current) drug therapy
CPT/HCPCS: 36415; 36430; 71045; 74177; 80048; 80053; 81001; 82274; 83690; 84484; 85025; 86850; 86900; 86901; 93005; J0360; J2470; J2704; P9016; Q9967

== ENCOUNTER 2024-02-15 10:53 | Outpatient (CLI) | payer MEDICARE | END 2024-02-15 10:54 | disposition home or self-care (01) | LOC: LABBT 10:53 | PROVIDERS: ATTEND Internal Medicine Cardiovascular Disease | DX: Z01.810 Encounter for preprocedural cardiovascular examination (principal); I48.19 Other persistent atrial fibrillation; Z91.81 History of falling | CPT/HCPCS: 93005; 93010 ==

== ENCOUNTER 2024-02-15 11:30 | Inpatient (IN) | payer MEDICARE ==
[2024-02-15 13:26] LABS: Hematocrit 31.8 % (36.0-47.0); Hemoglobin 9.8 g/dL (12.0-16.0); Mean Corpuscular HGB CONC 30.8 g/dL (32.0-36.0); Mean Corpuscular Hemoglobin 25.5 pg (27.0-31.0); Mean Corpuscular Volume 82.6 fL (78.0-98.0); Mean Platelet Volume 10.9 fL (7.4-10.4); Platelet Count 450 10x3/uL (130-400); Red Blood Cell (RBC) Count 3.85 mill/uL (4.20-5.40)
[2024-02-15 13:30] LABS: Bacteria/HPF None Seen HPF (None Seen); RBC/HPF 0-3 HPF (0-3); Squamous Epithelial None Seen HPF (0-3); WBC/HPF 0-3 HPF (0-3)
[2024-02-15 13:44] LABS: INR-International Normal Ratio 1.3; Prothrombin Time 15.9 sec (12.0-14.7)
[2024-02-15 13:45] LABS: PTT 37.8 sec (22.9-36.1)
[2024-02-15 13:49] LABS: ALT (SGPT) 15 U/L (8-55); AST (SGOT) 27 U/L (5-34); Albumin 4.2 g/dL (3.4-4.8); Alkaline Phosphatase 99 U/L (40-110); Anion Gap 14 mmol/L (10-20); BUN (Urea Nitrogen) 24 mg/dL (9.8-20.1); Calc. Creatinine Clearance 0 mL/min (70-130); Calcium 9.5 mg/dL (7.8-10.44); Carbon Dioxide 18 mmol/L (23-31); Chloride 106 mmol/L (98-107); Estimated GFR 54; Globulin 3.4 g/dL (2.4-3.5); Glucose 81 mg/dL (83-110); Potassium 4.2 mmol/L (3.5-5.1); Protein, Total 7.6 g/dL (5.8-8.1); Sodium 134 mmol/L (136-145)
[2024-02-20] MEDS ORDERED: Iopamidol 370 76% 100 ML VIAL ONE (09:59)
[2024-02-20] MEDS ORDERED: Clindamycin/D5W 900 mg/50 ml Premix Bag ONE (11:23)
[2024-02-20] MEDS ORDERED: Protamine Sulfate 50 MG/5 ML VIAL ONE (11:23)
[2024-02-20] MEDS ORDERED: Heparin 10,000 UNITS/ 10 ML VIAL ONE (11:23)
[2024-02-20] MEDS ORDERED: fentaNYL 50 mcg/mL 1 mL Vial ONE ×2 (13:36→14:51)
[2024-02-20] MEDS ORDERED: Ondansetron PF 4 MG/2 ML Vial ONE (14:50)
[2024-02-20] MEDS ORDERED: PROPOFOL 200 MG/20 ML VIAL ONE (14:50)
[2024-02-20] MEDS ORDERED: Dexamethasone 20 MG/5 ML VIAL ONE (14:50)
[2024-02-20] MEDS ORDERED: Lidocaine 1% PF 5 ML VIAL ONE (14:50)
[2024-02-20] MEDS ORDERED: Rocuronium Bromide 10 MG/ML (10ML VIAL) ONE (14:50)
[2024-02-20] MEDS ORDERED: Clindamycin/D5W 600 mg/50 ml Premix Bag ONE (14:54)
[2024-02-20] MEDS ORDERED: SUGAMMADEX SODIUM 200 MG/2 ML VIAL ONE (16:15)
[2024-02-20] MEDS ORDERED: Acetaminophen 325 MG TAB PO PRN (16:28)
[2024-02-20] MEDS ORDERED: Acetaminophen/Codeine 30-300mg Tablet PO PRN (16:28)
[2024-02-20] MEDS ORDERED: Ondansetron PF 4 MG/2 ML Vial IVP PRN (17:24)
[2024-02-20] MEDS ORDERED: Calcium Carbonate 500 MG ChewTAB PO PRN (17:24)
[2024-02-20] MEDS ORDERED: Senokot S 8.6-50 MG TAB PO PRN (17:24)
[2024-02-20 19:55] LABS: #Basophils 0.03 10x3/uL (0.0-0.2); #Eosinophils Less than 0.03 10x3/uL (0.0-0.7); %Basophils 0.3 % (0.0-1.0); %Eosinophils 0.2 % (0.0-10.0); %Lymphocytes 8.3 % (21.0-51.0); %Monocytes 1.1 % (0.0-10.0); %Neutrophils 89.7 % (42.0-75.0); Hematocrit 31.4 % (36.0-47.0); Hemoglobin 9.8 g/dL (12.0-16.0); Mean Corpuscular HGB CONC 31.2 g/dL (32.0-36.0); Mean Corpuscular Hemoglobin 25.7 pg (27.0-31.0); Mean Corpuscular Volume 82.2 fL (78.0-98.0); Platelet Count 356 10x3/uL (130-400); Red Blood Cell (RBC) Count 3.82 mill/uL (4.20-5.40)
[2024-02-20 20:12] LABS: Anion Gap 16 mmol/L (10-20); BUN (Urea Nitrogen) 23 mg/dL (9.8-20.1); Calc. Creatinine Clearance 47 mL/min (70-130); Calcium 8.9 mg/dL (7.8-10.44); Carbon Dioxide 17 mmol/L (23-31); Chloride 108 mmol/L (98-107); Estimated GFR 63; Glucose 104 mg/dL (83-110); Potassium 4.3 mmol/L (3.5-5.1); Sodium 137 mmol/L (136-145)
[2024-02-21 00:19] VITALS: BMI 25.0
[2024-02-21 04:06] LABS: #Basophils Less than 0.03 10x3/uL (0.0-0.2); #Eosinophils Less than 0.03 10x3/uL (0.0-0.7); %Basophils 0.3 % (0.0-1.0); %Lymphocytes 14.4 % (21.0-51.0); %Monocytes 2.9 % (0.0-10.0); %Neutrophils 82.1 % (42.0-75.0); Hematocrit 27.3 % (36.0-47.0); Hemoglobin 8.9 g/dL (12.0-16.0); Mean Corpuscular HGB CONC 32.6 g/dL (32.0-36.0); Mean Corpuscular Hemoglobin 25.6 pg (27.0-31.0); Mean Corpuscular Volume 78.4 fL (78.0-98.0); Platelet Count 348 10x3/uL (130-400); RBC Distribution Width 16.1 % (11.5-14.5); Red Blood Cell (RBC) Count 3.48 mill/uL (4.20-5.40)
[2024-02-21 04:35] LABS: ALT (SGPT) 16 U/L (8-55); AST (SGOT) 26 U/L (5-34); Albumin 3.4 g/dL (3.4-4.8); Alkaline Phosphatase 89 U/L (40-110); Anion Gap 12 mmol/L (10-20); BUN (Urea Nitrogen) 26 mg/dL (9.8-20.1); Calc. Creatinine Clearance 42 mL/min (70-130); Calcium 8.6 mg/dL (7.8-10.44); Carbon Dioxide 20 mmol/L (23-31); Chloride 107 mmol/L (98-107); Estimated GFR 56; Globulin 2.9 g/dL (2.4-3.5); Glucose 152 mg/dL (83-110); Potassium 4.4 mmol/L (3.5-5.1); Protein, Total 6.3 g/dL (5.8-8.1); Sodium 135 mmol/L (136-145)
[2024-02-21] MEDS: Nebivolol HCl 5 MG TAB PO SCH (08:20)
[2024-02-21 11:17] VITALS: BP 127/59; TEMP 97.7
[2024-02-21] MEDS: Rivaroxaban 15 MG TAB PO SCH (12:48)
== END 2024-02-21 15:30 | disposition home or self-care (01) | DRG 274 ==
LOC: SURG A 02-20 09:20 → EDSTATUS 02-20 11:30 → 2NO 02-20 19:12
PROVIDERS: ADMIT Internal Medicine; ATTEND Internal Medicine
PROC: B24BZZ4 Ultrasonography of Heart with Aorta, Transesophageal (ICD-10-PCS; principal; 2024-02-20)
PROC: 02L73DK Occlusion of Left Atrial Appendage with Intraluminal Device, Percutaneous Approach (ICD-10-PCS; 2024-02-20)
DX: I48.19 Other persistent atrial fibrillation (principal); Z00.6 Encounter for examination for normal comparison and control in clinical research program; Z66 Do not resuscitate; Z88.0 Allergy status to penicillin; Z88.1 Allergy status to other antibiotic agents; Z79.82 Long term (current) use of aspirin; Z79.899 Other long term (current) drug therapy; I10 Essential (primary) hypertension; R41.82 Altered mental status, unspecified; E78.5 Hyperlipidemia, unspecified
CPT/HCPCS: 33340; 36415; 80048; 80053; 81015; 83735; 85025; 85027; 85347; 85610; 85730; 86850; 86900; 86901; 93306; 93355; C1759; C1760; C1817; C1894; J1100; J1644; J2405; J2704; J2720; J3010; J3490; Q9967

== ENCOUNTER 2024-03-29 08:51 | Outpatient (CLI) | payer MEDICARE ==
[2024-03-29 10:09] LABS: INR-International Normal Ratio 1.1; Prothrombin Time 14.2 sec (12.0-14.7)
[2024-03-29 10:10] LABS: PTT 33.4 sec (22.9-36.1)
[2024-03-29 10:17] LABS: Anion Gap 12 mmol/L (10-20); BUN (Urea Nitrogen) 25 mg/dL (9.8-20.1); Calc. Creatinine Clearance 0 mL/min (70-130); Calcium 9.4 mg/dL (7.8-10.44); Carbon Dioxide 21 mmol/L (23-31); Chloride 109 mmol/L (98-107); Estimated GFR 53; Glucose 103 mg/dL (83-110); Potassium 4.2 mmol/L (3.5-5.1); Sodium 138 mmol/L (136-145)
[2024-03-29 10:32] LABS: #Basophils 0.09 10x3/uL (0.0-0.2); %Basophils 1.3 % (0.0-1.0); %Eosinophils 3.1 % (0.0-10.0); %Lymphocytes 23.3 % (21.0-51.0); %Monocytes 11.2 % (0.0-10.0); %Neutrophils 60.8 % (42.0-75.0); Hematocrit 28.6 % (36.0-47.0); Hemoglobin 8.9 g/dL (12.0-16.0); Mean Corpuscular HGB CONC 31.1 g/dL (32.0-36.0); Mean Corpuscular Hemoglobin 23.1 pg (27.0-31.0); Mean Corpuscular Volume 74.3 fL (78.0-98.0); Mean Platelet Volume 10.7 fL (7.4-10.4); Platelet Count 409 10x3/uL (130-400); RBC Distribution Width 17.2 % (11.5-14.5); Red Blood Cell (RBC) Count 3.85 mill/uL (4.20-5.40)
[2024-03-29 11:28] LABS: Anisocytosis SLIGHT = 6-15 cells HPF (0-5); Burr Cells SLIGHT = 2-5 cells HPF (0-1); Elliptocytes SLIGHT = 2-5 cells HPF (0-1); Eosinophils 1 % (0-10); Hypochromia SLIGHT = 6-15 cells HPF (0-5); Lymphocytes 19 % (21-51); Microcytosis SLIGHT = 6-15 cells HPF (0-5); Monocytes 2 % (0-10); Neutrophil 77 % (42-75); Platelet Adequacy Comment Platelets Increased; Poikilocytosis SLIGHT = 6-15 cells HPF (0-5); Polychromasia SLIGHT = 2-3 cells HPF (0-2); Reactive Lymphocytes 1 % (0-10); Schistocytes MODERATE= 6-15 cells HPF (0-1)
== END 2024-03-29 08:52 | disposition home or self-care (01) ==
LOC: LABBT 08:51
PROVIDERS: ATTEND Internal Medicine Cardiovascular Disease
DX: Z01.812 Encounter for preprocedural laboratory examination (principal); I48.19 Other persistent atrial fibrillation
CPT/HCPCS: 80048; 85025; 85610; 85730

== ENCOUNTER 2024-04-04 05:33 | Day surgery (SDC) | payer MEDICARE ==
[2024-03-29 09:10] VITALS: BMI 24.9
[2024-04-04] MEDS ORDERED: PROPOFOL 200 MG/20 ML VIAL ONE (07:37)
[2024-04-04] MEDS ORDERED: Lidocaine 1% PF 5 ML VIAL ONE (07:37)
== END 2024-04-04 09:04 | disposition home or self-care (01) ==
LOC: SDC 05:33
PROVIDERS: ATTEND Internal Medicine Cardiovascular Disease
PROC: B24BZZ4 Ultrasonography of Heart with Aorta, Transesophageal (ICD-10-PCS; principal; 2024-04-04)
DX: I48.19 Other persistent atrial fibrillation (principal); I27.20 Pulmonary hypertension, unspecified; Z95.818 Presence of other cardiac implants and grafts; Z88.0 Allergy status to penicillin; Z88.1 Allergy status to other antibiotic agents; Z79.02 Long term (current) use of antithrombotics/antiplatelets; Z79.82 Long term (current) use of aspirin; Z79.899 Other long term (current) drug therapy
CPT/HCPCS: 93312; J2704

== ENCOUNTER 2024-05-28 09:32 | Outpatient (CLI) | payer MEDICARE ==
[2024-05-28] MEDS ORDERED: Iopamidol 370 76% 100 ML VIAL ONE (10:29)
== END 2024-05-28 09:33 | disposition home or self-care (01) ==
LOC: CT 09:32
PROVIDERS: ATTEND Physician Assistant Medical
DX: D64.9 Anemia, unspecified (principal); R93.2 Abnormal findings on diagnostic imaging of liver and biliary tract; K76.0 Fatty (change of) liver, not elsewhere classified; J90 Pleural effusion, not elsewhere classified; I51.7 Cardiomegaly
CPT/HCPCS: 74170; 82565